=== PATIENT | female | born 1990 | race Caucasian/White ===

== ENCOUNTER 2018-06-13 11:54 | Outpatient (CLI) | payer MEDICARE, MEDICAID, SELFPAY ==
[2018-06-13 12:51] LABS: Hemoglobin A1C 6.6 % (4.5-6.2)
[2018-06-13 13:07] LABS: PROTEIN < 6.0 mg/dL
[2018-06-13 13:13] LABS: COMMENT (LAB VIEW ONLY) 39.65 mg/dL
[2018-06-13 13:19] LABS: TSH 1.94 uIU/mL (0.358-3.74)
== END 2018-06-13 12:14 ==
PROVIDERS: PCP Internal Medicine; Visit Provider Internal Medicine Endocrinology, Diabetes & Metabolism
DX: E10.9 Type 1 diabetes mellitus without complications (principal)
CPT/HCPCS: 36415; 82565; 83036; 84156; 84443

== ENCOUNTER 2019-12-11 03:58 | Outpatient (CLI) | payer MEDICARE, MEDICAID, SELFPAY ==
[2019-12-11 14:26] LABS: Hemoglobin A1C 6.5 % (3.8-5.6)
== END 2019-12-11 04:18 ==
PROVIDERS: PCP Internal Medicine; Visit Provider Internal Medicine Endocrinology, Diabetes & Metabolism
DX: E10.9 Type 1 diabetes mellitus without complications (principal)
CPT/HCPCS: 36415; 83036

== ENCOUNTER 2020-03-09 02:13 | Outpatient (CLI) | payer MEDICARE, MEDICAID, SELFPAY ==
[2020-03-09 14:51] LABS: Hemoglobin A1C 6.6 % (3.8-5.6)
[2020-03-09 14:59] LABS: CREATININE 0.98 mg/dL (0.55-1.02); TSH 2.33 uIU/mL (0.36-3.74)
== END 2020-03-09 02:33 ==
PROVIDERS: PCP Internal Medicine; Visit Provider Internal Medicine Endocrinology, Diabetes & Metabolism
DX: E10.9 Type 1 diabetes mellitus without complications (principal)
CPT/HCPCS: 82565; 83036; 84443

== ENCOUNTER 2020-09-06 11:11 | Emergency (ER) | payer MEDICARE, MEDICAID, SELFPAY ==
[2020-09-06] VITALS (9 sets, daily range): BP systolic 115–137; BP diastolic 72–108; PULSE 96–119; RESP 14–22; TEMP 36.6; O2SAT 96–98
--- NOTE | 2020-09-06 11:29 | ED.GENADUL_ITS ---
Discharge Plan Disposition Patient Disposition: HOME Condition: Stable Discharge Details Clinical Impression: Seizure Primary Care Provider: None,None ED Provider: Dorian Benjamin Home Meds and New Rx's Prescriptions: Continued (DME) OneTouch Ultra Test 1 EACH strip 1 ea Miscellaneous Q4H PRN Qty: 200 RF: 5 psyllium husk [Metamucil] 0.52 GM capsule 0.52 g PO BID Qty: 2 RF: 0 Daily Multiple 1 EACH tablet 1 tab-cap PO DAILY RF: 0 Glucagon Emergency Kit (human) 1 MG kit 1 mg IJ PRN RF: 0 Stress Formula 1 EACH tablet 1 ea PO DAILY RF: 0 insulin aspart U-100 [Novolog PenFill U-100 Insulin] 100 UNIT/1 ML cartridge 0 sliding scale dose Sub-Q RF: 0 drospirenone-ethinyl estradiol [Gianvi (28)] 3-0.02 mg tablet 1 tab PO DAILY Qty: 3 RF: 6 insulin aspart U-100 [Novolog U-100 Insulin aspart] 100 unit/mL solution .INSULIN PUMP RF: 0 Discharge Instructions Instructions: New-Onset Seizure in Adults (ED) Additional Instructions: At this time your work-up in the ER has not revealed any obvious emergent process. It appears as though she is back to her baseline mental status. I personally spoke with neurology, Dr. Mckinley. She did recommend a loading dose of Keppra now and continuing Keppra twice a day; however, at this time you have declined this. I have placed you on both the care management and neurology list, this should help expedite establishing a primary care provider and your neurology appointment likely sometime at the end of next week. Please watch for new or worsening symptoms and return to the ER for any concerns. Referrals: Elyssa Mckinley MD [ [facility] STAFF PHYSICIAN] - Discharge Data Discharge Date/Time-TO BE ENTERED AT DEPARTURE: 09/06/20 14:37 Medical Decision Making This is a 30-year-old female with past medical history of type 1 diabetes, a utism, OCD, presenting for what her parents believed could have been a seizure. She was on the ground, her entire body was shaking, arms were jerking, she was unconscious, this lasted for no longer than 5-10 minutes. She seemed to be confused after the episode. No history of previous seizures. Clinically she appears well, nontoxic, answering questions appropriately. She has neurologically intact. I see no obvious head trauma. I do see a small abrasion to the left side of her tongue. No evidence of incontinence. Denies recent illness or trauma. She is sitting in room 6, in no acute distress, playing on her switch videogame. I was able to contact her mother on the phone for further information. Plan is to obtain laboratory values, obtain chest x-ray, head CT, EKG and observe. Laboratory values reveal minimal nonspecific leukocytosis of 11.18, INR 1.0 electrolytes unremarkable. Creatinine 1.1 with a GFR of 58.32 glucose 201, mag 2.0 LFTs unremarkable. Lipase 89 TSH 1.47 urine contamination, no signs of infection. Tox screen negative. Alcohol less than 3. Patient remains neurologically and hemodynamically stable while under my care. Mother is now in room and reports that she appears to be at baseline. We discussed her initial benign work-up, and the fact that she is now asymptomatic. I have placed a call to our neurology team, Dr. Mckinley. I was able to discuss the case with Dr. Mckinley, she feels as though the patient can be safely discharged from our ER and she will see her by the end of next week for outpatient evaluation, MRI and EEG. She does recommend initiating a loading dose of Keppra now at 1000 mg and then Keppra twice daily 500 mg. She was sure to mention that the patient should not be driving. I reiterated my conversation with Dr. Mckinley with both the patient and her mother. They understand that she will follow-up sometime at the end of next week and I have placed her on the care management team to help establish a local primary care provider and expedite outpatient neurology follow-up. We discussed the importance of not operating heavy machinery or driving. We also discussed the recommendations of initiating Keppra therapy. Mother questions if this medication should be initiated. I did explain to her that these were the recommendations of Dr. Mckinley however at this time she declines. She also questions that if she is asymptomatic until the time of her appointment next week if an MRI or EEG is even indicated in the first place. I explained to her that based upon my conversation with Dr. Mckinley I believe that this was the next course of action for further evaluation but she can certainly discuss her concerns with Dr. Mckinley at the appointment. Patient and mother have no additional questions or concerns and are comfortable discharge at this time. Patient is asymptomatic upon discharge and at baseline per her mother. Medical Records Medical records reviewed: Yes I reviewed the patient's medical records. Imaging Data Radiologic Study: Imaging: CT Scan Radiologist's impression: Head CT per radiology negative Radiologic Study #2: Attestation: I personally reviewed and interpreted this imaging study as follows: Imaging: X-Ray Radiologist's impression: Chest x-ray negative per radiology ECG Data Attestation: I personally reviewed and interpreted this ECG (s) as follows: Interpretation: Please see official report by Dr. Travis. Sinus rhythm, ventricular of 97. No STEMI. HPI General Mode of arrival: ambulatory . Date/Time Provider Initiated Documentation: 09/06/20 11:16 . Limitations to Documentation: no limitations . Information obtained by: patient and family . HPI Narrative: This is a 30-year- old female with past sickle history that includes diabetes type 1, OCD, autism, who lives with her parents, presenting to the ER with her mother. Apparently she is on a rather strict routine, however that routine it was broken this morning, she did not eat breakfast at her normal time. Subsequently her father heard what he believes was her falling upstairs. He immediately went upstairs and noticed her to be lying on the ground underneath her desk unresponsive, with body wide movement and extremity jerking. This lasted for what they believed to be sometime between 5 and 10 minutes. After this resolved mother reports that she seemed to be confused, typically knows what day it is. Patient has no recollection of these events. Currently she has no additional concerns or complaints. Denies previous seizure. Denies headache, visual change, neck pain, chest pain, back pain, shortness of breath, abdominal pain, nausea vomiting, incontinence, numbness, tingling, weakness. Upon questioning, she does believe that she bit her tongue. Glucose this morning was 148 prior to the episode. Mother checked afterward and it was 98, the lowest it went was 88, then she had toast. Mother states that as an adolescent she had a seizure x1, evaluated, no source was ever found, she was not medicated, never had another seizure. Related Data Home Medications Medication Instructions Recorded Confirmed IPNetVoiceuch Ultra Test #200 strip 01/01/14 04/08/20 Daily Multiple 1 tab-cap PO DAILY tab-cap 02/10/15 09/06/20 psyllium husk [Metamucil] 0.52 g PO BID #2 02/10/15 09/06/20 Glucagon Emergency Kit (human) 1 mg IJ PRN kit 08/30/15 09/06/20 Stress Formula 1 ea PO DAILY 08/30/15 09/06/20 insulin aspart U-100 [Novolog 0 sliding scale dose SUB-Q 08/30/15 04/08/20 PenFill U-100 Insulin] drospirenone 3 mg-ethinyl 1 tab PO DAILY #3 pack 03/23/20 09/06/20 estradiol 0.02 mg tablet insulin aspart U-100 [Novolog .INSULIN PUMP 09/06/20 U-100 Insulin aspart] Previous Rx's Medication Instructions Recorded drospirenone 3 mg-ethinyl 1 tab PO DAILY #3 pack 03/23/20 estradiol 0.02 mg tablet Allergies Allergy/AdvReac Type Severity Reaction Status Date / Time No Known Drug Allergies Allergy Unverified 04/08/20 14:16 General Stated Complaint: Seizure CHANTEL: 3 Review of Systems Constitutional Constitutional: Denies fatigue, Denies fever(s), Denies headache(s) and Denies w eakness Eyes Eyes: Denies change in vision ENT Ears, Nose, Mouth, and Throat: Denies headache(s) and Denies neck mass Cardiovascular Cardiovascular: Denies chest pain and Denies dyspnea Respiratory Respiratory: Denies cough and Denies dyspnea Gastrointestinal Gastrointestinal: Denies abdominal pain, Denies fecal incontinence, Denies nausea and Denies vomiting Genitourinary Genitourinary: Denies dysmenorrhea and Denies urinary incontinence Musculoskeletal Musculoskeletal: Denies back pain, Denies numbness and Denies tingling Integumentary/Breasts Skin/Breast: Denies rash Neurologic Neurologic: Denies headache(s), Denies numbness, Denies tingling and Denies weakness Endocrine Endocrine: Denies fatigue [facility] Medical History Autism autism spectrum. Declines pelvic exams. continuous active OCPs to suppress menstration. OCD (obsessive compulsive disorder) Type 1 diabetes No end organ damage. Insulin pump[place] [facility] [place] History Father Rheumatoid arthritis Grandfather Myocardial infarction Grandfather Diabetes Hyperlipidemia Grandmother Osteoporosis Grandmother Heart disease Mother Benign tumor of meningioma (cerebral) Social History Smoking/Tobacco Use Status: Never Smoking risk assessment performed?: Yes Alcohol Intake: never Drug use: Never Do you feel safe at home: Yes Do you feel safe in your relationship?: Yes Exam Const General: cooperative, healthy appearing, comfortable and no acute distress Orientation: alert, awake and oriented x3 HENMT Head: normal to inspection, normocephalic and atraumatic Ears: external ears normal, TM's normal bilaterally and EAC's normal Face and sinus: normal facial exam Mouth: moist mucous membranes Mouth/tongue images: 1. Abrasion, no laceration. Throat: posterior oropharynx normal Eyes General: appearance normal, both eyes and all related structures Alignment and Position: alignment normal Periorbital: periorbital findings normal Eyelids: eyelids normal Conjunctivae: conjunctivae normal Sclera: sclerae normal Cornea: corneas normal Pupils: PERRL EOM: EOM intact bilaterally Direct ophthalmoscopy: normal light reflex Neck Neck: normal visual inspection, full ROM, no meningeal signs, trachea midline, supple and nontender Resp Effort & Inspection: normal respiratory effort and able to speak in complete sentences Auscultation: clear to auscultation bilaterally Cardio Rate: regular rate Rhythm: regular rhythm GI Palpation: soft, not firm, no guarding and nontender Auscultation: normal bowel sounds Back/Spine/Pelvis Back: No back tenderness Skin General skin exam: no rashes or lesions noted Neuro General: patient alert, patient awake, patient oriented x3, moves all extremities and no focal motor deficits Cranial Nerves: CN's II-XI intact bilaterally Cognition: normal cognition Speech: speech normal Gait: normal gait Motor: muscle tone normal throughout, strength 5/5 throughout, no pronator drift, no movement abnormalities noted and no fasciculations Sensory Exam: no sensory deficits noted Coordination: [id number] test normal, Does not sway with eyes open and rapid alternating movement UE normal Extrem General: normal to inspection, full ROM, capillary refill normal, no pedal edema and no calf tenderness Psych Appearance: grossly normal Mental Status: mental status grossly normal Course Vital Signs Vital signs: Vital Signs Temperature 36.6 C 09/06/20 11:20 Pulse 113 H 09/06/20 11:20 Respiratory Rate 18 09/06/20 11:20 Blood Pressure 125/83 09/06/20 11:20 Pulse Oximetry 98 09/06/20 11:20 Temperature 36.6 C 09/06/20 11:20 Temperature Source Skin 09/06/20 11:20 Pulse 113 H 09/06/20 11:20 Respiratory Rate 18 09/06/20 11:20 Blood Pressure 125/83 09/06/20 11:20 Blood Pressure Position Sitting 09/06/20 11:20 Pulse Oximetry 98 09/06/20 11:20 Oxygen Delivery Method Room Air 09/06/20 11:20 Oxygen Flow Rate 0 09/06/20 11:20 Pain Level 0 09/06/20 11:20
--- NOTE | 2020-09-06 11:30 | DI.CT_ITS ---
EXAM: CT HEAD WO CLINICAL HISTORY: seizure. TECHNIQUE: Imaging Protocol: Axial computed tomography images with coronal and sagittal reformatted images were created and reviewed COMPARISON: No exams were available for comparison FINDINGS: The ventricular system is normal in appearance. No evidence of acute intracranial hemorrhage, mass effect, or midline shift. The orbital structures are unremarkable. The temporal bone structures appear intact. Calvarium: Normal. Visualized Paranasal sinuses/Mastoids: Clear. IMPRESSION: Normal cranial CT. RADIATION DOSE DELIVERED: 797.81mGy.cm Total DLP 797.81mGy.cm Total DLP DATA REPOSITORY: All CT scans at this facility are submitted to the National Radiology Data Registry (NRDR) Dose Index Registry (DIR) with the [employer] (ACR). RADIATION OPTIMIZATION: All CT scans at this facility use at least one of these dose optimization te chniques: automated exposure control; mA and/or kV adjustment per patient size (includes targeted exa ms where dose is matched to clinical indication); or iterative reconstruction.
--- NOTE | 2020-09-06 11:30 | RT.EKG_ITS ---
APPROVED REPORT Exam: Resting ECG Patient Location: E HR:97 bpm ECG Measurements Heart Rate 97 AXIS [place] 145 P 24 QRSd 85 QRS 56 QT 328 T 27 QTc 417 Conclusion Sinus rhythm...normal P axis, V-rate 60- 99 I have reviewed and interpreted ECG and agree with software generated interpretation.
--- NOTE | 2020-09-06 11:30 | DI.RAD_ITS ---
EXAM: XR CHEST 2V PA LATERAL CLINICAL HISTORY: seizure TECHNIQUE: 2D digital imaging was performed. COMPARISON: CR CHEST 2 VIEWS PA,LAT from 12/25/2016 FINDINGS: The heart is not enlarged. The lungs are clear and well expanded. No pleural effusion seen. Mediastin al contours appear intact. Right cervical rib noted. IMPRESSION: Normal chest. RADIATION DOSE DELIVERED: Total DLP
[2020-09-06 12:16] LABS: Abs Immature Grans 0.04 10^3/uL (0.0-0.06); Absolute Basophil Count 0.06 10^3/uL (0.0-0.2); Absolute Eosinophil Count 0.02 10^3/uL (0.0-0.7); Absolute Lymphocyte Count 0.95 10^3/uL (1.2-3.4); Absolute Monocyte Count 0.34 10^3/uL (0.1-0.8); Absolute Neutrophil Count 9.77 10^3/uL (1.2-6.7); Basophils % 0.5; Eosinophils % 0.2; HCT 40.5 % (36.0-46.0); HGB 13.6 g/dL (11.2-15.7); Immature Grans % 0.4; Lymphocytes % 8.5; MCH 30.2 pg (27.0-33.0); MCHC 33.6 % (32.0-36.0); Neutrophils % 87.4; Nucleated RBC 0 %; Platelet Count 318 10^3/uL (130-400); RDW-SD 39.5 fL; WBC 11.18 10^3/uL (4.4-10.8)
[2020-09-06 12:17] LABS: Bilirubin Negative (Negative); Blood Negative (Negative); Clarity Sl Cloudy (Clear); Glucose Negative (Negative); Ketones Negative (Negative); Leukocyte Esterase Small (Negative); Nitrite Negative (Negative); Urobilinogen 0.2 EU/dL (Up TO 0.2); pH 6.5 (5-8)
[2020-09-06 12:27] LABS: Bacteria Few HPF (Negative); C & S Indicated? No/Sq. Contamination; Casts Negative LPF (Negative); Crystals Negative HPF (Negative); Epithelial Cells Many HPF (Negative); Mucus Trace (Negative); Other Cells Negative (Negative); RBC 0-2 HPF (0-2)
[2020-09-06 12:38] LABS: ALT 22 U/L (14-59); AST 19 U/L (15-37); Albumin 3.3 g/dL (3.4-5.0); Alkaline Phosphatase 79 U/L (46-116); Anion Gap 9.6 mmol/L (3-11); BUN 12 mg/dL (7-18); Bilirubin, Total 0.3 mg/dL (0.2-1.0); CO2 24.4 mmol/L (21.0-32.0); CREATININE 1.1 mg/dL (0.55-1.02); Calcium 9.4 mg/dL (8.5-10.1); Chloride 104 mmol/L (98-107); Estimated GFR 58.32 (mL/min/1.73m2); Glucose 201 mg/dL (74-106); Lipase 89 U/L (73-393); PTT Activated 23.4 sec (21.0-27.5); Prothrombin Time 9.7 sec (9.3-11.0); Sodium 138 mmol/L (136-145); TSH 1.47 uIU/mL (0.36-3.74); Total Protein 7.4 g/dL (6.4-8.2)
[2020-09-06 12:40] LABS: ETHANOL BLOOD < 3.0 mg/dL (<3)
[2020-09-06 12:41] LABS: *AMPHETAMINES SCREEN URINE Negative (Negative); *BARBITURATES SCREEN URINE Negative (Negative); *BENZODIAZEPINES SCREEN URINE Negative (Negative); Cannabinoids THC Negative (Negative); Cocaine Screen,Urine Negative (Negative); METHADONE URINE SCREEN Negative (Negative); OPIATES URINE SCREEN Negative (Negative)
[2020-09-06 12:45] LABS: Tricyclic Antidepressants Negative (Negative)
--- NOTE | 2020-09-06 14:13 | NUR.NOTE ---
Nursing Note: Referral to [facility] Neurology for follow up by the end of next week faxed. Alma Ramon Referral given to Care Management to establish care with a PCP. Alma Ramon
--- NOTE | 2020-09-07 11:02 | PDOC.ERCMPRO ---
- If Service Date Differs Date of service: 09/07/20 Time of Service: 11:02 Care Management Progress Note Homa is seen in the ED on 09/06/20 for new onset of seizure. At the request of ERYN Dos Santos, ED provider, VALENTINA coordinates a referral to nikunj Sidhu, of [facility], on-call provider, to assist Homa in establishing care with a PCP.
== END 2020-09-06 14:37 | disposition home or self-care (01) ==
PROVIDERS: Emergency Provider Physician Assistant
DX: G40.89 Other seizures (principal); E10.9 Type 1 diabetes mellitus without complications
CPT/HCPCS: 36416; 80053; 80307; 81025; 82962; 83690; 93005; 99284; 70450; 71046; 80320; 81003; 81015; 83735; 84443; 85025; 85610; 85730; 93010

== ENCOUNTER 2020-09-09 02:49 | Outpatient (CLI) | payer MEDICARE, MEDICAID, SELFPAY ==
[2020-09-09 10:44] LABS: Hemoglobin A1C 6.9 % (<5.7)
== END 2020-09-09 02:50 | disposition home or self-care (01) ==
LOC: LBO 02:49
PROVIDERS: Visit Provider Internal Medicine Endocrinology, Diabetes & Metabolism
DX: E10.9 Type 1 diabetes mellitus without complications (principal)
CPT/HCPCS: 36415; 83036

== ENCOUNTER → 2020-09-20 13:55 | Outpatient (BNVA) | payer MEDICARE, MEDICAID, SELFPAY | PROVIDERS: PCP Family Medicine; Referring Provider Physician Assistant; Visit Provider Psychiatry & Neurology Neurology | DX: R68.89 Other general symptoms and signs (principal); R56.9 Unspecified convulsions; E10.9 Type 1 diabetes mellitus without complications; F84.0 Autistic disorder | CPT/HCPCS: 99215 ==

== ENCOUNTER 2020-09-22 04:13 | Outpatient (CLI) | payer MEDICARE, MEDICAID, SELFPAY ==
--- NOTE | 2020-09-23 13:11 | PDOC.EEG_ITS ---
Neurology EEG EEG: [facility] Department of Neurology EEG REPORT Date of Recordin09/22/20 Interpreting Physician: Dr. Elyssa Mckinley PCP/Referring Provider: Dr. Antwon Valdez Reason for study: Homa is an autistic 30 year-old young woman with developmental cognitive delay who had a suspected convulsive seizure. Current Medications: Home Medications Medication Instructions Recorded Confirmed Type OneTouch Ultra Test #200 strip 01/01/14 09/20/20 History Glucagon Emergency Kit (human) 1 mg IJ PRN kit 08/30/15 09/20/20 History Stress Formula 1 ea PO DAILY 08/30/15 09/20/20 History insulin aspart U-100 [Novolog 0 sliding scale dose SUB-Q 08/30/15 09/20/20 History PenFill U-100 Insulin] drospirenone 3 mg-ethinyl 1 tab PO DAILY #3 pack 03/23/20 09/20/20 Rx estradiol 0.02 mg tablet insulin aspart U-100 [Novolog .INSULIN PUMP 09/06/20 09/20/20 History U-100 Insulin aspart] calcium polycarbophil 625 mg tablet 1,250 mg PO DAILY 09/20/20 09/20/20 History METHODS: A 21 channel digitized electroencephalogram was performed in the [facility] Clinical Neurophysiology Laboratory. The 10/20 international system of electrode placement was used and bipolar and referential electrode montages were recorded. In addition to EEG the patient was monitored for EKG and lateral/vertical eye movements. Activation procedures of photic stimulation and hyperventilation were performed if applicable. Video was used during activation procedures and during events where applicable. The duration of the recording was 30 minutes. DESCRIPTION OF EEG: The patient was noted to be awake only during the recording. During maximal wakefulness a 10-Hz posterior background rhythm was present which was well- modulated, symmetrical, reactive to eye opening, and of moderate voltage. With eye opening the background activity changed to a low voltage mixture of alpha, beta, and occasional theta range frequencies. Faster frequencies were present in the bilateral anterior head regions. There was a normal anterior-posterior voltage gradient. No drowsiness or stage II sleep was recorded. There was a single T3 sharp-wave at 16:30:09. This is not clearly epileptic. There were rare bursts of generalized delta slowing throughout wakefulness. Activating Procedures: Photic stimulation was performed which produced a symmetrical posterior driving response at various flash frequencies. Hyperventilation was performed with moderate effort and produced no physiological slowing of the background. EKG: EKG revealed normal sinus rhythm. INTERPRETATION: This EEG is abnormal due to: #1. Single T3 sharp-wave that could be epileptic, but not clearly so. #2. Rare generalized slowing. PRIOR EEG: none CLINICAL CORRELATION: There was a single T3 sharp-wave that looks suspiciously epileptic, but as there were no further discharges, I cannot be sure. Of note, sleep was not captured which reduces the sensitivity of the test. The generalized slowing is sugge stive of a mild diffuse cerebral encephalopathy of broad differential including toxic-metabolic etiology, drowsiness, or due to underlying developmental condition. Clinical correlation is advised. Elyssa Mckinley MD
== END 2020-09-22 04:14 | disposition home or self-care (01) ==
LOC: RT 04:13
PROVIDERS: PCP Family Medicine; Visit Provider Psychiatry & Neurology Neurology
DX: R56.9 Unspecified convulsions (principal)
CPT/HCPCS: 95816

== ENCOUNTER → 2020-09-26 08:59 | Outpatient (BNVA) | payer MEDICARE, MEDICAID, SELFPAY | PROVIDERS: PCP Family Medicine; Referring Provider Family Medicine; Visit Provider Psychiatry & Neurology Neurology | DX: R69 Illness, unspecified (principal) ==

== ENCOUNTER 2020-09-30 08:06 | Outpatient (CLI) | payer MEDICARE, MEDICAID, SELFPAY ==
--- NOTE | 2020-10-05 08:50 | PDOC.EEG ---
Neurology EEG EEG: [facility] Department of Neurology LONG-TERM AMBULATORY EEG REPORT Date of Recordin09/30/20 at 10:34:14 to 10/01/20 at 09:42:18 Interpreting Physician: Dr. Elyssa Mckinley PCP/Referring Provider: Dr. Antwon Valdez Reason for study: Homa is an autistic 30 year-old young woman with developmental cognitive delay who had a suspected convulsive seizure followed by borderline routine EEG. Current Medications: Home Medications Medication Instructions Recorded Confirmed Type Rankomat.plTouch Ultra Test #200 strip 01/01/14 09/20/20 History Glucagon Emergency Kit (human) 1 mg IJ PRN kit 08/30/15 09/20/20 History Stress Formula 1 ea PO DAILY 08/30/15 09/20/20 History insulin aspart U-100 [Novolog 0 sliding scale dose SUB-Q 08/30/15 09/20/20 History PenFill U-100 Insulin] drospirenone 3 mg-ethinyl 1 tab PO DAILY #3 pack 03/23/20 09/20/20 Rx estradiol 0.02 mg tablet insulin aspart U-100 [Novolog .INSULIN PUMP 09/06/20 09/20/20 History U-100 Insulin aspart] calcium polycarbophil 625 mg tablet 1,250 mg PO DAILY 09/20/20 09/20/20 History METHODS: An 18-channel digitized electroencephalogram was recorded in the ambulatory setting with video. The 10/20 international system of electrode placement was used and bipolar and referential electrode montages were recorded. In addition to EEG the patient was monitored for EKG and by video. Activation procedures of photic stimulation and hyperventilation were performed if applicable. The duration of the recording was ~23 hours. DESCRIPTION OF EEG: Waking background activity: During maximal wakefulness a 9.5-Hz posterior background rhythm was present which was well-modulated, symmetrical, reactive to eye opening, and of moderate voltage. Faster frequencies were present in the bilateral anterior head regions. There was a normal anterior-posterior voltage gradient. Drowsy and sleeping background activity: During drowsiness, there was attenuation of the posterior dominant background rhythm and vertex waves. Normal stage II and III sleep was present with symmetrical sleep spindles, K-complexes, and vertex waves with slowing of the background rhythm to delta/theta frequencies. REM sleep manifested by rapid lateral eye movements and faster background rhythms was recorded. Arousal was unremarkable. Interictal abnormalities: Occasional left temporal T3, moderate-amplitude sharp waves. These generally occured as a single sharp, but occasionally in short runs. I think these are all Wicket spikes (benign). Ictal findings: No events recorded. Activating Procedures: Photic stimulation and hyperventilation were not performed. EKG: EKG revealed normal sinus rhythm. INTERPRETATION: This long-term EEG is normal during the awake and sleep states. PRIOR EEG: -09/22/20: single T3 sharp of unclear significance. CLINICAL CORRELATION: No focal regions of cerebral dysfunction or epileptiform activity was present. The T3 sharps seen are a benign variant. Epilepsy remains a clinical diagnosis and a normal EEG does not rule out epilepsy. Clinical correlation is advised. Elyssa Mckinley MD
== END 2020-09-30 08:07 | disposition home or self-care (01) ==
PROVIDERS: PCP Family Medicine; Visit Provider Psychiatry & Neurology Neurology
DX: R56.9 Unspecified convulsions (principal)
CPT/HCPCS: 95714; 95720

== ENCOUNTER 2020-11-30 03:16 | Outpatient (CLI) | payer MEDICARE, MEDICAID, SELFPAY | END 2020-11-30 03:17 | disposition home or self-care (01) | LOC: LBO 03:16 | PROVIDERS: PCP Family Medicine; Visit Provider Physician Assistant | DX: E10.9 Type 1 diabetes mellitus without complications (principal) | CPT/HCPCS: 36415; 83036 ==

== ENCOUNTER 2021-02-28 03:55 | Outpatient (CLI) | payer MEDICARE, MEDICAID, SELFPAY ==
[2021-02-28 08:40] LABS: Hemoglobin A1C 6.9 % (<5.7)
[2021-02-28 10:00] LABS: COMMENT (LAB VIEW ONLY) 9.03 mg/dL
[2021-02-28 10:05] LABS: Calculated LDL 100 mg/dL (<100); Cholesterol 197 mg/dL (<200); HDL Cholesterol 69 mg/dL (40-60); TSH 2.61 uIU/mL (0.36-3.74); Triglyceride 141 mg/dL (<150)
== END 2021-02-28 03:56 | disposition home or self-care (01) ==
PROVIDERS: PCP Family Medicine; Visit Provider Physician Assistant
DX: E10.9 Type 1 diabetes mellitus without complications (principal)
CPT/HCPCS: 36415; 80061; 82043; 82565; 82570; 83036; 84443

== ENCOUNTER 2021-07-10 10:50 | Emergency (ER) | payer MEDICARE, MEDICAID, SELFPAY ==
[2021-07-10] VITALS (32 sets, daily range): BP systolic 119–139; BP diastolic 63–88; PULSE 69–113; RESP 15–27; TEMP 36.8; O2SAT 99–100
--- NOTE | 2021-07-10 11:06 | ED.GENADUL_ITS ---
Discharge Plan Disposition Patient Disposition: HOME Condition: Improving Discharge Details Clinical Impression: Seizure Primary Care Provider: Antwon Valdez ED Provider: Aniyah Padilla Home Meds and New Rx's Prescriptions: New levetiracetam [Keppra] 500 mg tablet 500 mg PO BID Qty: 60 RF: 0 Continued calcium polycarbophil [Fiber-Tabs] 625 mg tablet 1,250 mg PO DAILY RF: 0 (DME) Contour Next Test Strips Strip See Rx Instructions .ROUTE .MEDSUPPLY Qty: 10 RF: 0 (DME) Blood Glucose Test Strip See Rx Instructions .ROUTE .MEDSUPPLY Qty: 400 RF: 1 Glucagon Emergency Kit (human) 1 MG kit 1 mg IJ PRN RF: 0 Stress Formula 1 EACH tablet 1 ea PO DAILY RF: 0 insulin aspart U-100 [Novolog PenFill U-100 Insulin] 100 UNIT/1 ML cartridge 0 sliding scale dose Sub-Q RF: 0 drospirenone-ethinyl estradiol 3-0.02 mg tablet 1 tab PO DAILY Qty: 3 RF: 6 insulin aspart U-100 [Novolog U-100 Insulin aspart] 100 unit/mL solution .INSULIN PUMP RF: 0 Discharge Instructions Instructions: Levetiracetam (By mouth), Recurrent Seizures in Adults (ED) Additional Instructions: Please return immediately to the emergency department if you develop any new or worsening symptoms, if your condition does not improve as expected, or if you become otherwise concerned. It is extremely important that you call soon as possible to make an appointment to be seen in follow-up for this visit by your primary care doctor and your neurologist. Referrals: Antwon Valdez DO [Primary Care Provider] - Elyssa Mckinley MD [ [facility] STAFF PHYSICIAN] - Discharge Data Discharge Date/Time-TO BE ENTERED AT DEPARTURE: 07/10/21 14:20 Medical Decision Making Homa Reeves is a 31-year-old woman with a history of insulin-dependent diabetes with insulin pump, autism who presented to the emergency department with seizure. On examination patient is well and nontoxic appearing. Neurologic exam is nonfocal. Patient is oriented x3 and per her mother is back at baseline. Only signs of trauma mild ecchymosis to the distal aspect of tongue without laceration. Concern for likely seizure versus less likely syncope, possible metabolic/electrolyte derangement, other. Exam/history at this time is not consistent with acute emergent intracranial trauma, sepsis, meningitis/encephalitis, CVA. Plan for screening labs, will discuss with neurology. Labs reviewed, WBC 11.37, hemoglobin 13.1, creatinine 1.2, sodium 134, anion gap 7.2, glucose 329. I discussed patient with Dr. Mckinley of neurology, who stated that she saw patient last winter after patient had seizure, she recommended that patient be started on Keppra at that time but patient's mother declined. Dr. Mckinley recommends 1000 mg p.o. Keppra loading dose, and then 500 mg Keppra twice daily, will see patient as outpatient. Patient reports that she has no complaints, no pain, feeling well at this time, mom reports that patient continues to be baseline. I had a discussion with Patient and her mother regarding return to emergency department precautions, home care, and importance of outpatient follow-up. Pt and her mother verbalize understanding of the plan and are amenable. Patient discharged to home with clear plan for outpatient follow-up. All questions were answered. Disposition decision was made weighing the risks and benefits of hospitalization versus outpatient treatment, the risk for further decompensation, and the patient's wishes. Medical Records Medical records reviewed: Yes I reviewed the patient's medical records. Lab Data Lab results reviewed: Yes I reviewed the patient's lab results. Labs: Laboratory Tests Range/Units 07/10/21 07/10/21 07/10/21 11:20 11:20 11:20 WBC (4.4-10.8) 10^3/uL 11.37 H RBC (3.93-5.22) 10^6/uL 4.45 Hgb (11.2-15.7) g/dL 13.1 Hct (36.0-46.0) % 40.9 MCV (80-95) fL 91.9 MCH (27.0-33.0) pg 29.4 MCHC (32.0-36.0) % 32.0 RDW (11.7-14.6) % 12.0 Plt Count (130-400) 10^3/uL 294 MPV (8.0-11.0) fL 10.0 Immature Gran % 1.8 Neutrophils % 86.7 Lymphocytes % 7.7 Monocytes % 3.3 Eosinophils % 0.2 Basophils % 0.3 Nucleated RBC % % 0 Absolute Neutrophils (1.2-6.7) 10^3/uL 9.86 H Absolute Lymphocytes (1.2-3.4) 10^3/uL 0.88 L Absolute Monocytes (0.1-0.8) 10^3/uL 0.38 Absolute Eosinophils (0.0-0.7) 10^3/uL 0.02 Absolute Basophils (0.0-0.2) 10^3/uL 0.03 Sodium (136-145) mmol/L 134 L Potassium (3.5-5.1) mmol/L 4.9 Chloride (98-107) mmol/L 102 Carbon Dioxide (21.0-32.0) mmol/L 24.8 Anion Gap (3-11) mmol/L 7.2 BUN (7-18) mg/dL 14 Creatinine (0.55-1.02) mg/dL 1.2 H Estimated GFR/1.73 m2 (mL/min/1.73m2) 52.40 Glucose (74-106) mg/dL 329 H Calcium (8.5-10.1) mg/dL 8.9 Magnesium (1.8-2.4) mg/dL 2.1 Total Bilirubin (0.2-1.0) mg/dL 0.4 AST (15-37) U/L 23 ALT (14-59) U/L 21 Alkaline Phosphatase (46-116) U/L 78 Total Protein (6.4-8.2) g/dL 7.2 Albumin (3.4-5.0) g/dL 3.3 L TSH (0.36-3.74) uIU/mL 1.87 Urine Color (Yellow) Urine Clarity (Clear) Urine pH (5-8) Ur Specific [place] (1.005-1.025) Urine Protein (Negative) mg/dL Urine Ketones (Negative) mg/dL Urine Blood (Negative) Urine Nitrite (Negative) Urine Bilirubin (Negative) Urine Urobilinogen (Up TO 0.2) EU/dL Ur Leukocyte Esterase (Negative) Urine Glucose (Negative) mg/dL Range/Units 07/10/21 12:30 WBC (4.4-10.8) 10^3/uL RBC (3.93-5.22) 10^6/uL Hgb (11.2-15.7) g/dL Hct (36.0-46.0) % MCV (80-95) fL MCH (27.0-33.0) pg MCHC (32.0-36.0) % RDW (11.7-14.6) % Plt Count (130-400) 10^3/uL MPV (8.0-11.0) fL Immature Gran % Neutrophils % Lymphocytes % Monocytes % Eosinophils % Basophils % Nucleated RBC % % Absolute Neutrophils (1.2-6.7) 10^3/uL Absolute Lymphocytes (1.2-3.4) 10^3/uL Absolute Monocytes (0.1-0.8) 10^3/uL Absolute Eosinophils (0.0-0.7) 10^3/uL Absolute Basophils (0.0-0.2) 10^3/uL Sodium (136-145) mmol/L Potassium (3.5-5.1) mmol/L Chloride (98-107) mmol/L Carbon Dioxide (21.0-32.0) mmol/L Anion Gap (3-11) mmol/L BUN (7-18) mg/dL Creatinine (0.55-1.02) mg/dL Estimated GFR/1.73 m2 (mL/min/1.73m2) Glucose (74-106) mg/dL Calcium (8.5-10.1) mg/dL Magnesium (1.8-2.4) mg/dL Total Bilirubin (0.2-1.0) mg/dL AST (15-37) U/L ALT (14-59) U/L Alkaline Phosphatase (46-116) U/L Total Protein (6.4-8.2) g/dL Albumin (3.4-5.0) g/dL TSH (0.36-3.74) uIU/mL Urine Color (Yellow) Yellow Urine Clarity (Clear) Clear Urine pH (5-8) 6.0 Ur Specific [place] (1.005-1.025) 1.020 Urine Protein (Negative) mg/dL Negative Urine Ketones (Negative) mg/dL Negative Urine Blood (Negative) Negative Urine Nitrite (Negative) Negative Urine Bilirubin (Negative) Negative Urine Urobilinogen (Up TO 0.2) EU/dL 0.2 Ur Leukocyte Esterase (Negative) Negative Urine Glucose (Negative) mg/dL 500 H HPI General Mode of arrival: ambulatory . Date/Time Provider Initiated Documentation: 07/10/21 10:52 . Limitations to Documentation: no limitations . Information obtained by: patient, family, RN notes reviewed and old records reviewed . HPI Narrative: Homa Reeves is a 31-year-old woman with a history of insulin-dependent diabetes with insulin pump, autism presenting to emergency department seizure. History is also provided by the mother who is present in the emergency department. Patient's mother reports that at approximately 10 AM this morning patient was found in her bed with seizure activity (patient's father and mother had been alerted by moaning sounds coming from patient's room). Patient's mother reports that seizure lasted 2 to 3 minutes, involved unresponsiveness and generalized shaking. Patient's mom reports that patient was essentially at baseline upon arrival to the emergency department. She reports that patient had a seizure approximately 1 year ago, this is patient's only other seizure history. Patient is not currently on any antiepileptic medication. No known recent symptoms or changes over the past few days, other than patient becomes very excited at Mary time and has been quite excited over the past few days. Normal amount of sleep, no changes in diet, no changes in medications. No pain, cough, shortness of breath, fever, vomiting, diarrhea, numbness, weakness. Patient lives at home with her parents. Patient's mom reports that patient appeared as though she had been seated in her chair and slid forward during seizure. No incontinence. Related Data Home Medications Medication Instructions Recorded Confirmed Glucagon Emergency Kit (human) 1 mg IJ PRN kit 08/30/15 07/10/21 Stress Formula 1 ea PO DAILY 08/30/15 07/10/21 insulin aspart U-100 [Novolog 0 sliding scale dose SUB-Q 08/30/15 06/29/21 PenFill U-100 Insulin] insulin aspart U-100 [Novolog .INSULIN PUMP 09/06/20 06/29/21 U-100 Insulin aspart] calcium polycarbophil 625 mg tablet 1,250 mg PO DAILY 09/20/20 07/10/21 drospirenone 3 mg-ethinyl 1 tab PO DAILY #3 pack 06/28/21 07/10/21 estradiol 0.02 mg tablet blood sugar diagnostic #10 ea 06/29/21 06/29/21 blood sugar diagnostic #400 ea 06/29/21 06/29/21 levetiracetam [Keppra] 500 mg PO BID #60 tab 07/10/21 Previous Rx's Medication Instructions Recorded drospirenone 3 mg-ethinyl 1 tab PO DAILY #3 pack 06/28/21 estradiol 0.02 mg tablet blood sugar diagnostic #400 ea 06/29/21 levetiracetam [Keppra] 500 mg PO BID #60 tab 07/10/21 Allergies Allergy/AdvReac Type Severity Reaction Status Date / Time No Known Drug Allergies Allergy Verified 07/10/21 11:09 General CHANTEL: 3 Review of Systems Narrative: Constitutional: denies fevers Eyes: denies eye pain ENT: denies ear pain, dental pain, sore throat Cardiovascular: denies chest pain Respiratory: denies SOB, cough GI: denies abdominal pain, vomiting, diarrhea : denies flank pain MSK: denies neck pain, arthralgias, myalgias, reports upper back pain since seizure Skin: denies rash Neuro: denies headaches, numbness, weakness PFSH All Active Problems (Updated 07/10/21 @ 13:24 by Aniyah Padilla MD) Seizure (Acute) Type I diabetes mellitus (Acute) Routine gynecological examination (Acute 02/10/15) OCD (obsessive compulsive disorder) (Acute 02/10/15) Picks at skin/open sores/folliculitis; significant scarring On continuous OCPs b/c the bleeding exacerbates her OCD symptoms; amenorheic and doing well. Insulin pump in place (Acute 09/25/13) Encounter for surveillance of contraceptive pills (Acute 01/21/18) Initiated on continous active OCPs in 2014 for issues of mood lability around menses. Patient has been amenorrheic w/o PMDD. Plan is to continue continue continous active OCPs. Pt does not need yearly annual exam Autism (Acute 06/13/04) pt has guardian; does not allow exams; on continuous OCPs for suppression of menses. DKA (diabetic ketoacidoses) (Acute) Hypomagnesemia (Acute) Hypokalemia (Acute) Gastroenteritis (Acute) Cyclic vomiting syndrome (Acute) Insulin dependent diabetes mellitus (Acute) Medical History Autism autism spectrum. Declines pelvic exams. continuous active OCPs to suppress menstration. OCD (obsessive compulsive disorder) Type 1 diabetes No end organ damage. Insulin pump. Endo at [facility] [place]. Family History Father Rheumatoid arthritis Grandfather Myocardial infarction Grandfather Diabetes Hyperlipidemia Grandmother Osteoporosis Grandmother Heart disease Mother Benign tumor of meningioma (cerebral) Social History Smoking/Tobacco Use Status: Never Smoking risk assessment performed?: Yes Alcohol Intake: never Drug use: Never Household members: family Housing: house Communication Needs: Corrective Lenses Pets and animals: Yes Pets and animals: dog(s) What is your relationship status?: never Panel score (0-1 are the most socially isolated patients): 0 What type of physical activity do you participate in: walking Seatbelt use: always Do you feel safe at home: Yes Do you feel safe in your relationship?: Yes Exam Narrative Exam Narrative: Constitutional: well and [id number], pleasant, conversing normally HENT: head atraumatic/normocephalic/normal inspection, mucous membranes moist, ecchymosis distal edge of tongue consistent with tongue biting, no tongue lacerations, no other intraoral lesions Eyes: conjunctiva normal, sclera normal, pupils 3mm b/l extraocular movements intact, no nystagmus Neck: no stridor, normal ROM, trachea midline Chest: normal inspection Resp: normal work of breathing, LCTAB Cardio: normal rate, normal rhythm, no murmur appreciated GI: abdomen soft, non-tender, non-distended Back: normal inspection, no rash no tenderness palpation of the thoracic spine or paraspinal Skin: warm, dry, normal color, no rash Neuro: alert, not altered, cranial nerves II through XII intact, motor 5 out of 5 throughout, normal tone Ext: no edema Psych: normal mood, normal affect, normal behavior
[2021-07-10] MEDS: Normal Saline 1,000 ML 1000 ML IV ×2 (11:30→13:08)
[2021-07-10 11:33] LABS: Absolute Basophil Count 0.03 10^3/uL (0.0-0.2); Absolute Eosinophil Count 0.02 10^3/uL (0.0-0.7); Absolute Lymphocyte Count 0.88 10^3/uL (1.2-3.4); Basophils % 0.3; Eosinophils % 0.2; HCT 40.9 % (36.0-46.0); HGB 13.1 g/dL (11.2-15.7); Immature Grans % 1.8; Lymphocytes % 7.7; MCH 29.4 pg (27.0-33.0); MCV 91.9 fL (80-95); Monocytes % 3.3; Neutrophils % 86.7; Nucleated RBC 0 %; Platelet Count 294 10^3/uL (130-400); RBC 4.45 10^6/uL (3.93-5.22); RDW-SD 40.4 fL; WBC 11.37 10^3/uL (4.4-10.8)
[2021-07-10 11:34] LABS: Absolute Monocyte Count 0.38 10^3/uL (0.1-0.8); Absolute Neutrophil Count 9.86 10^3/uL (1.2-6.7)
[2021-07-10 11:48] LABS: ALT 21 U/L (14-59); AST 23 U/L (15-37); Albumin 3.3 g/dL (3.4-5.0); Alkaline Phosphatase 78 U/L (46-116); Anion Gap 7.2 mmol/L (3-11); BUN 14 mg/dL (7-18); Bilirubin, Total 0.4 mg/dL (0.2-1.0); CO2 24.8 mmol/L (21.0-32.0); CREATININE 1.2 mg/dL (0.55-1.02); Calcium 8.9 mg/dL (8.5-10.1); Chloride 102 mmol/L (98-107); Glucose 329 mg/dL (74-106); Magnesium 2.1 mg/dL (1.8-2.4); Potassium 4.9 mmol/L (3.5-5.1); Sodium 134 mmol/L (136-145); Total Protein 7.2 g/dL (6.4-8.2)
[2021-07-10 11:56] LABS: TSH (W/Ref FT4) 1.87 uIU/mL (0.36-3.74)
[2021-07-10] MEDS: levETIRAcetam 500 MG TAB 1000 MG PO (12:33)
[2021-07-10 12:40] LABS: Bilirubin Negative (Negative); Blood Negative (Negative); Clarity Clear (Clear); Glucose 500 mg/dL (Negative); Ketones Negative (Negative); Leukocyte Esterase Negative (Negative); Nitrite Negative (Negative); Urobilinogen 0.2 EU/dL (Up TO 0.2)
== END 2021-07-10 14:20 | disposition home or self-care (01) ==
PROVIDERS: Emergency Provider Student in an Organized Health Care Education/Training Program; PCP Family Medicine
DX: R56.9 Unspecified convulsions (principal); F84.0 Autistic disorder; E10.9 Type 1 diabetes mellitus without complications; Z79.4 Long term (current) use of insulin; Z96.41 Presence of insulin pump (external) (internal)
CPT/HCPCS: 36416; 80053; 81025; 82962; 96360; 96361; 99284; 81003; 83735; 84443; 85025

== ENCOUNTER → 2021-08-15 10:22 | Outpatient (BNVA) | payer MEDICARE, MEDICAID, SELFPAY | PROVIDERS: PCP Family Medicine; Referring Provider Family Medicine; Visit Provider Psychiatry & Neurology Neurology | DX: R56.9 Unspecified convulsions (principal); E10.9 Type 1 diabetes mellitus without complications; F84.0 Autistic disorder | CPT/HCPCS: 99214 ==

== ENCOUNTER 2021-09-01 02:21 | Outpatient (CLI) | payer MEDICARE, MEDICAID, SELFPAY ==
[2021-09-01 14:29] LABS: Hemoglobin A1C 6.4 % (<5.7)
[2021-09-01 16:11] LABS: CREATININE 1.1 mg/dL (0.55-1.02); Estimated GFR 57.93 (mL/min/1.73m2); HDL Cholesterol 65 mg/dL (40-60); LDL CHOLESTEROL 97 mg/dL (<100); TSH 1.29 uIU/mL (0.36-3.74)
== END 2021-09-01 02:22 | disposition home or self-care (01) ==
LOC: LBO 02:21
PROVIDERS: PCP Family Medicine; Visit Provider Internal Medicine Endocrinology, Diabetes & Metabolism
DX: E10.9 Type 1 diabetes mellitus without complications (principal)
CPT/HCPCS: 36415; 83721; 82043; 82565; 82570; 83036; 83718; 84443

== ENCOUNTER → 2022-02-19 10:38 | Outpatient (BNVA) | payer MEDICARE, MEDICAID, SELFPAY | PROVIDERS: PCP Family Medicine; Referring Provider Family Medicine; Visit Provider Psychiatry & Neurology Neurology | DX: G40.909 Epilepsy, unspecified, not intractable, without status epilepticus (principal); E10.9 Type 1 diabetes mellitus without complications | CPT/HCPCS: 99213 ==

== ENCOUNTER 2022-03-23 01:52 | Outpatient (CLI) | payer MEDICARE, MEDICAID, SELFPAY ==
[2022-03-23 09:55] LABS: HCT 41.1 % (36.0-46.0); HGB 13.7 g/dL (11.2-15.7); MCHC 33.3 % (32.0-36.0); MCV 90 fL (80-95); MPV 9.9 fL (8.0-11.0); Platelet Count 305 10^3/uL (130-400); RBC 4.56 10^6/uL (3.93-5.22); RDW 11.9 % (11.7-14.6); RDW-SD 39.1 fL; WBC 6.98 10^3/uL (4.4-10.8)
[2022-03-23 10:59] LABS: ALT 22 U/L (14-59); AST 16 U/L (15-37); Albumin 3.3 g/dL (3.4-5.0); Alkaline Phosphatase 71 U/L (46-116); Anion Gap 8.4 mmol/L (3-11); BUN 13 mg/dL (7-18); Bilirubin, Total 0.4 mg/dL (0.2-1.0); CO2 26.6 mmol/L (21.0-32.0); Calcium 9.3 mg/dL (8.5-10.1); Chloride 102 mmol/L (98-107); Estimated GFR 77.24 (mL/min/1.73m2); Glucose 109 mg/dL (74-106); LDL CHOLESTEROL 103 mg/dL (<100); Potassium 4.6 mmol/L (3.5-5.1); Sodium 137 mmol/L (136-145); TSH 2.38 uIU/mL (0.36-3.74); Total Protein 7.5 g/dL (6.4-8.2)
[2022-03-23 11:11] LABS: Hemoglobin A1C 6.9 % (<5.7)
[2022-03-23 18:10] LABS: Albumin, Ur < 0.6 mg/dL (See Note); Creatinine, Ur 21.2 mg/dL (See Note)
[2022-03-25 13:34] LABS: Levetiracetam 20.3 mcg/mL
== END 2022-03-23 01:53 | disposition home or self-care (01) ==
LOC: LBO 01:52
PROVIDERS: Psychiatry & Neurology Neurology; PCP Family Medicine; Visit Provider Physician Assistant
DX: E10.9 Type 1 diabetes mellitus without complications (principal); G40.909 Epilepsy, unspecified, not intractable, without status epilepticus
CPT/HCPCS: 36415; 80053; 83721; 85027; 80177; 82043; 82570; 83036; 84443

== ENCOUNTER 2022-06-29 01:44 | Outpatient (CLI) | payer MEDICARE, MEDICAID, SELFPAY ==
[2022-06-29 10:11] LABS: Hemoglobin A1C 6.7 % (<5.7)
== END 2022-06-29 01:45 | disposition home or self-care (01) ==
LOC: LBO 01:44
PROVIDERS: PCP Family Medicine; Visit Provider Physician Assistant
DX: E10.9 Type 1 diabetes mellitus without complications (principal)
CPT/HCPCS: 36415; 83036

== ENCOUNTER 2022-10-08 03:55 | Outpatient (CLI) | payer MEDICARE, MEDICAID, SELFPAY ==
[2022-10-08 14:32] LABS: Hemoglobin A1C 7.2 % (<5.7)
== END 2022-10-08 03:56 | disposition home or self-care (01) ==
LOC: LBO 03:56
PROVIDERS: PCP Family Medicine; Visit Provider Physician Assistant
DX: E10.9 Type 1 diabetes mellitus without complications (principal)
CPT/HCPCS: 36415; 83036

== ENCOUNTER 2023-01-03 01:12 | Outpatient (CLI) | payer MEDICARE, MEDICAID, SELFPAY ==
[2023-01-03 14:09] LABS: CREATININE 1.1 mg/dL (0.55-1.02); Estimated GFR 68.47 (mL/min/1.73m2); HDL Cholesterol 67 mg/dL (40-60); LDL CHOLESTEROL 100 mg/dL (<100); TSH 1.04 uIU/mL (0.36-3.74)
[2023-01-03 15:39] LABS: Hemoglobin A1C 6.8 % (<5.7)
== END 2023-01-03 01:13 | disposition home or self-care (01) ==
LOC: LBO 01:12
PROVIDERS: PCP Family Medicine; Visit Provider Physician Assistant
DX: E10.9 Type 1 diabetes mellitus without complications (principal)
CPT/HCPCS: 36415; 83721; 82565; 83036; 83718; 84443

== ENCOUNTER → 2023-02-14 09:13 | Outpatient (BNVA) | payer MEDICARE, MEDICAID, SELFPAY | PROVIDERS: PCP Family Medicine; Visit Provider Psychiatry & Neurology Neurology | DX: G40.909 Epilepsy, unspecified, not intractable, without status epilepticus (principal); E10.9 Type 1 diabetes mellitus without complications | CPT/HCPCS: 99213 ==

== ENCOUNTER 2023-10-02 10:29 | Outpatient (CLI) | payer MEDICARE, MEDICAID, SELFPAY ==
[2023-10-02 16:01] LABS: Hemoglobin A1C 6.8 % (<5.7)
== END 2023-10-02 10:30 | disposition home or self-care (01) ==
LOC: LBO 10-08 10:29
PROVIDERS: PCP Family Medicine; Visit Provider Physician Assistant
DX: E10.9 Type 1 diabetes mellitus without complications (principal)
CPT/HCPCS: 36415; 83036

== ENCOUNTER → 2024-02-13 09:05 | Outpatient (BNVA) | payer MEDICARE, MEDICAID, SELFPAY | PROVIDERS: PCP Family Medicine; Referring Provider Family Medicine; Visit Provider Psychiatry & Neurology Neurology | DX: E10.9 Type 1 diabetes mellitus without complications; G40.909 Epilepsy, unspecified, not intractable, without status epilepticus | CPT/HCPCS: 99213 ==

== ENCOUNTER 2024-06-11 08:27 | Outpatient (CLI) | payer MEDICARE, MEDICAID, SELFPAY ==
[2024-06-11 13:53] LABS: COMMENT (LAB VIEW ONLY) 73.08 mg/dL; Microalb ug/mg Crea 5.3 ug/mg Cr
[2024-06-11 14:03] LABS: CREATININE 1.2 mg/dL (0.55-1.02); HDL Cholesterol 78 mg/dL (40-60); LDL CHOLESTEROL 95 mg/dL (<100); TSH 1.48 uIU/mL (0.36-3.74)
== END 2024-06-11 08:28 | disposition home or self-care (01) ==
LOC: LBO 08:27
PROVIDERS: PCP Family Medicine; Visit Provider Physician Assistant
DX: E10.9 Type 1 diabetes mellitus without complications (principal)
CPT/HCPCS: 36415; 83721; 82043; 82565; 82570; 83036; 83718; 84443

== ENCOUNTER 2025-03-15 04:33 | Outpatient (CLI) | payer MEDICARE, MEDICAID, SELFPAY ==
[2025-03-15 09:13] LABS: Estimated GFR 67.62 (mL/min/1.73m2)
[2025-03-15 09:30] LABS: Hemoglobin A1C 10.5 % (<5.7)
== END 2025-03-15 04:34 | disposition home or self-care (01) ==
LOC: LOS 04:34
PROVIDERS: PCP Family Medicine; Visit Provider Physician Assistant
DX: E10.9 Type 1 diabetes mellitus without complications (principal)
CPT/HCPCS: 36415; 82565; 83036

== ENCOUNTER → 2025-05-17 13:48 | Outpatient (BNVA) | payer MEDICARE, MEDICAID, SELFPAY | PROVIDERS: PCP Family Medicine; Referring Provider Family Medicine; Visit Provider Psychiatry & Neurology Neurology | DX: G40.909 Epilepsy, unspecified, not intractable, without status epilepticus (principal); E10.9 Type 1 diabetes mellitus without complications | CPT/HCPCS: 99213 ==

== ENCOUNTER 2025-06-24 01:47 | Outpatient (CLI) | payer MEDICARE, MEDICAID, SELFPAY ==
[2025-06-24 16:40] LABS: Hemoglobin A1C 8.4 % (<5.7)
[2025-06-24 17:02] LABS: HDL Cholesterol 70 mg/dL (>40)
[2025-06-24 17:06] LABS: TSH 1.86 uIU/mL (0.55-4.78)
== END 2025-06-24 01:48 | disposition home or self-care (01) ==
LOC: LBO 01:48
PROVIDERS: PCP Family Medicine; Visit Provider Physician Assistant
DX: E10.65 Type 1 diabetes mellitus with hyperglycemia (principal)
CPT/HCPCS: 36415; 83721; 82043; 82565; 82570; 83036; 83718; 84443